=== PATIENT | female | born 1980 | race Caucasian/White ===

== ENCOUNTER 2016-11-08 06:12 | Inpatient (IN) | payer OTHER ==
[2016-11-08] MEDS ORDERED: LIDOCAINE 1% 2 ML INJ ONE (06:49)
[2016-11-08] MEDS ORDERED: PREGABALIN 150 MG CAP PO ONE (07:00)
[2016-11-08] MEDS ORDERED: ceFAZolin 2 GM/DEXTROSE 100 ML IV ONE (07:00)
[2016-11-08] MEDS ORDERED: ACETAMINOPHEN 500 MG TAB PO ONE (07:00)
[2016-11-08] MEDS ORDERED: SKIN ADHESIVE (DERMABOND) 1 EACH TP ONE (07:01)
[2016-11-08] MEDS ORDERED: CITRATE DEXTROSE SOLN 500 ML BAG ONE (07:01)
[2016-11-08] MEDS ORDERED: BUPIVACAINE/EPI 0.25% 30 ML SDV ONE ×2 (07:02→07:52)
[2016-11-08] MEDS ORDERED: MIDAZOLAM 2 MG/2 ML VIAL ONE (07:05)
[2016-11-08] MEDS ORDERED: fentaNYL 100 MCG/2 ML INJ ONE ×2 (07:06→12:50)
[2016-11-08] MEDS ORDERED: SCOPOLAMINE HYDROBROMIDE 1.5 MG PATCH TD ONE (07:18)
[2016-11-08] MEDS ORDERED: ONDANSETRON 4 MG/2 ML VIAL ONE (07:28)
[2016-11-08] MEDS ORDERED: LIDOCAINE 2% 100 MG/5 ML SYR ONE (07:28)
[2016-11-08] MEDS ORDERED: DEXAMETHASONE 4 MG/ML VIAL ONE ×2 (07:28)
[2016-11-08] MEDS ORDERED: LIDOCAINE 2% JELLY 5 ML TUBE ONE (07:28)
[2016-11-08] MEDS ORDERED: PROPOFOL/EMULSION 500 MG/50 ML BOTTLE IV ONE ×2 (07:28→08:47)
[2016-11-08] MEDS ORDERED: HYDROmorphONE/DILAUDID 2 MG/ML INJ ONE (07:55)
[2016-11-08] MEDS ORDERED: TRANEXAMIC ACID 1,000 MG in NS 100 ML IV ONE (08:00)
[2016-11-08] MEDS ORDERED: CHLORHEXIDINE GLUC HIBICLENS 118 ML BTL TP ONE (08:00)
[2016-11-08] MEDS ORDERED: ONDANSETRON 4 MG/2 ML VIAL IVP PRN ×2 (10:03→12:30)
[2016-11-08] MEDS ORDERED: HYDROmorph 10MCG/ML&BUP 0.0625% in 100ML NS EP SCH (10:03)
[2016-11-08] MEDS ORDERED: NALOXONE HCL 0.4 MG/ML INJ IVP PRN (10:03)
[2016-11-08] MEDS ORDERED: METOCLOPRAMIDE 10 MG/2 ML VIAL IVP PRN (10:03)
[2016-11-08] MEDS ORDERED: diphenhydrAMINE 25 MG CAP PO PRN (10:03)
[2016-11-08] MEDS ORDERED: NARCOTIC DRIP BAG-TOTAL ALL TYPES EP PRN (10:03)
[2016-11-08] MEDS ORDERED: PROPOFOL 200 MG/20 ML VIAL ONE ×2 (10:53→11:48)
[2016-11-08] MEDS ORDERED: LACTULOSE 20 GM/30 ML UDCUP PO PRN (12:30)
[2016-11-08] MEDS ORDERED: POLYETHYLENE GLYCOL 3350 17 GM PKT PO PRN (12:30)
[2016-11-08] MEDS ORDERED: MAGNESIUM HYDROXIDE 30 ML UDCUP PO PRN (12:30)
[2016-11-08] MEDS ORDERED: ONDANSETRON DISINTEGRATING 4 MG TAB PO PRN (12:30)
[2016-11-08] MEDS ORDERED: BISACODYL 10 MG SUPP PR PRN (12:30)
[2016-11-08] MEDS: SENNOSIDES/DOCUSATE SODIUM TAB PO SCH (21:26)
--- NOTE | 2016-11-08 23:35 | SUROPNOTE ---
MARVIN Operative Report - Surgery Surgery was performed at [facility] on 11/08/16 Diagnosis: Left 1. Hip Acetabular Dysplasia Operation: Left Mily Acetabular Osteotomy (CHUCKY) Surgeon: Ortega Chang MD Sawmill Hand: Clayton GUSMAN Anesthetic: General + epidural Procedure: General anesthetic. Antibiotics given. Cell saver in use. Fluoroscopy. Phase 1: Position lateral, diagonal skin incision between ischial tuberosity and greater trochanter as for posterior hip approach. Blunt split of glut max fibers. Identification of fat pad overlying sciatic nerve. Exposure of sciatic nerve under fat pad, gently retracting it away-medially to ischial tuberosity. Exposure of subcotoloid fossa proximal to short rotators. Using osteotomes and under fluoroscopy, osteotomy of subcotoloid fossa to sciatic notch proximal to ischial spine. Closure of lateral cut. Patient is turned supine. Phase 2: Skin incision just distal to ASIS. Using diathermy the iliac spine was exposed and inguinal ligament + Sartorious were retracted medially, taking the LFCN with them, protecting it. Inner ilium was dissected from iliacus muscle bluntly , with a cob and swab. Dissection continued towards lateral superior ramus pubis. Using fluoroscopy an osteotomy of lateral superior ramus, just medial to tear drop, was performed with curved fish mouth osteotome. Phase 3: Osteotomy lines of the ilium were marked with diathermy as pre planned according to XR/CT and expected correction of acatabulum. 2 Shanz screws were drilled into central acetabular fragment, corresponding with planned correction angles, in order to mobilize central acetabular fragment after osteotomy is complete. Iliac osteotomy was performed with reciprocating saw and the main acetabular fragment was moved to realign weight bearing position. After confirmation of correction using fluoroscopy in AP and false profile planes, the fragment was fixed with 3 - 5.5mm full threaded screws Inguinal ligament and Sartorious were attached back to ASIS through drill holes. Incision was closed according to soft tissue layers. Skin was closed with subdermal Monocryl. Final fluoro shots were obtained to confirm position/correction. After surgery Sylvia moved both lower limbs and had no NV motor compromise. Evaluation under anesthesia: IR at 90 degrees hip flexion prior to CHUCKY was 30 degrees and after CHUCKY was 20 degrees. Bleedinml loss to cell saver, 165ml back. Post op instructions: 1. Non weight bearing crutches for 6 weeks 2. Epidural analgesia for 24-48 hours 3. Continuous SCD 4. Aspirin 81 mg X1 day once Epidural is discontinued 5. Avoid hip flexion past 90 and hip External rotation. 6. PT according to my recommendations at follow up visit Kind regards, Dr. Ortega Chang .
[2016-11-09] MEDS: ACETAMINOPHEN 325 MG TAB PO PRN ×4 (02:46→23:26)
[2016-11-09] MEDS: DIAZEPAM 2 MG TAB PO PRN ×2 (07:15→15:42)
[2016-11-09] MEDS ORDERED: fentaNYL 100 MCG/2 ML INJ ONE (08:36)
[2016-11-09] MEDS ORDERED: BUPIVACAINE 0.25% 30 ML SDV ONE (08:37)
[2016-11-09 08:47] LABS: HEMATOCRIT 30.8 % (38.0-47.0); HEMOGLOBIN 10.5 g/dL (12.6-16.3); MEAN CELL HEMOGLOBIN 30.7 pg (27.9-34.1); MEAN CELL HEMOGLOBIN CONCENTR. 34.1 g/dL (32.4-36.7); MEAN CELL VOLUME 90.1 fL (81.5-99.8); RED BLOOD CELL COUNT 3.42 10^6/uL (4.18-5.33); RED CELL DISTRIBUTION WIDTH 12.4 % (11.5-15.2)
[2016-11-09] MEDS ORDERED: SERTRALINE HCL 25 MG TAB PO SCH (09:00)
[2016-11-09 09:10] LABS: ANION GAP 4 mEq/L (8-16); CALCIUM 8.3 mg/dL (8.5-10.4); CARBON DIOXIDE 28 mEq/l (22-31); CHLORIDE 105 mEq/L (97-110); CREATININE 0.6 mg/dL (0.6-1.0); GLOMERULAR FILTRATION RATE > 60; GLUCOSE 76 mg/dL (70-100); POTASSIUM 3.9 mEq/L (3.5-5.2); SODIUM 137 mEq/L (134-144)
[2016-11-09] MEDS: DC NARCS MISC SCH (09:39)
[2016-11-09] MEDS: REGARDING ANTICOAG MISC SCH (09:39)
[2016-11-09] MEDS: NORETHINDRONE E ESTRADIOL IRON PO SCH (10:15)
[2016-11-09] MEDS: SENNOSIDES/DOCUSATE SODIUM TAB PO SCH ×2 (10:16→20:40)
[2016-11-09] MEDS ORDERED: HYDROmorph 10MCG/ML&BUP 0.05% in 100ML NS EP SCH (12:57)
--- NOTE | 2016-11-09 15:11 | SOAPPROG ---
SOAP Progress Note Assessment/Plan: Assessment: POD #1 s/p CHUCKY. Had catheter accidently disconnect overnight. Pain much better after a BO bolus by Dr. Kirk. Plan: 11/09/16 15:09 1) pt with some quad weakness. Will decrease the Marcaine to 0.05%, change lockout to 10 minutes. 2) trial without BO tomorrow. Subjective: Pain now 1-2/10. Was 10,000/10 earlier. Otherwise feeling good. Objective: Vital Signs Temp Pulse Resp BP Pulse Ox 36.9 C 75 14 95/51 L 100 11/09/16 13:45 11/09/16 13:45 11/09/16 13:45 11/09/16 13:45 11/09/16 13:45 Laboratory Results 11/09/16 08:25 11/09/16 08:25 11/08/16 11/09/16 11/10/16 05:59 05:59 05:59 Intake Total 5527.3 Output Total 2950 1700 Balance 2577.3 -1700 Resting comfortably strength good through out the lower extemities, except R quad and hip flexors 4/ 5 ICD10 Worksheet Patient Problems: Problems Problem Status Onset Hip dysplasia, congenital Acute - ICD10 Problem Qualifiers (1) Hip dysplasia, congenital
--- NOTE | 2016-11-09 19:19 | SOAPPROG ---
SOAP Progress Note Assessment/Plan: Assessment: 1 day post op Left CHUCKY Plan: Wean down PCEA per anesthesia Transition to oral analgesics tomorrow Up with PT/OT Pelvis Xray Active Care continuous Post op instructions: 1. Non weight bearing crutches for 6 weeks 2. Epidural analgesia for 24-48 hours 3. Continuous SCD 4. Aspirin 81 mg X1 day once Epidural is discontinued 5. Avoid hip flexion past 90 and hip External rotation. 11/09/16 19:15 11/09/16 19:20 11/09/16 19:27 Subjective: Sylvia had a rough morning with disconnected epidural, much better this evening. Pain well controlled with PCEA. Denies cp, sob, nausea. Objective: Vital Signs Temp Pulse Resp BP Pulse Ox 37.4 C 88 14 108/56 L 95 11/09/16 17:35 11/09/16 17:35 11/09/16 17:35 11/09/16 17:35 11/09/16 17:35 Laboratory Results 11/09/16 08:25 11/09/16 08:25 11/08/16 11/09/16 11/10/16 05:59 05:59 05:59 Intake Total 5527.3 1999 Output Total 2950 4050 Balance 2577.3 -2050 Well appearing in NAD Left hip: with scant ecchymosis, dressings dry Some LFCN numbness NVI distally Full ROM of left foot and ankle - Pending Discharge Pending Discharge Within 48 Hours: Yes Pending Discharge Date: 11/11/16 Pending Discharge Time: 11:00 ICD10 Worksheet Patient Problems: Problems Problem Status Onset Hip dysplasia, congenital Acute
[2016-11-10] MEDS: oxyCODONE IR 5 MG TAB PO PRN ×5 (05:58→20:58)
[2016-11-10] MEDS: SENNOSIDES/DOCUSATE SODIUM TAB PO SCH ×2 (08:18→21:33)
[2016-11-10] MEDS: DIAZEPAM 2 MG TAB PO PRN ×3 (08:19→20:59)
[2016-11-10] MEDS: SERTRALINE HCL 50 MG TAB PO SCH (08:20)
[2016-11-10] MEDS: NORETHINDRONE E ESTRADIOL IRON PO SCH (08:20)
[2016-11-10] MEDS: REGARDING ANTICOAG MISC SCH (10:02)
[2016-11-10] MEDS: DC NARCS MISC SCH (10:02)
[2016-11-10] MEDS: ASPIRIN EC 81 MG TAB PO SCH (13:09)
[2016-11-10] MEDS ORDERED: SCOPOLAMINE HYDROBROMIDE 1.5 MG PATCH TD PRN (13:19)
[2016-11-10] MEDS: HYDROmorphONE/DILAUDID 1 MG/ML SYR IVP PRN ×2 (18:06→21:01)
--- NOTE | 2016-11-10 18:16 | SOAPPROG ---
SOAP Progress Note Assessment/Plan: Assessment: POD #1 s/p CHUCKY. Had catheter accidently disconnect overnight. Pain much better after a BO bolus by Dr. Kirk. 11/10/16 POD #2 s/p CHUCKY. Did okay today with BO off. Strength good. Plan: 11/09/16 15:09 1) pt with some quad weakness. Will decrease the Marcaine to 0.05%, change lockout to 10 minutes. 2) trial without BO tomorrow. 11/10/16 18:14 pull BO and transition to po/IV meds. cath out, tip intact. Objective: Vital Signs Temp Pulse Resp BP Pulse Ox 37.9 C 92 16 119/66 94 11/10/16 15:55 11/10/16 15:55 11/10/16 15:55 11/10/16 15:55 11/10/16 15:55 Laboratory Results 11/09/16 08:25 11/09/16 08:25 11/09/16 11/10/16 11/11/16 05:59 05:59 05:59 Intake Total 5527.3 3500 2100 Output Total 2950 5700 4900 Balance 2577.3 -2200 -2800 ICD10 Worksheet Patient Problems: Problems Problem Status Onset Hip dysplasia, congenital Acute - ICD10 Problem Qualifiers (1) Hip dysplasia, congenital
[2016-11-11] MEDS: oxyCODONE IR 5 MG TAB PO PRN ×7 (03:39→20:10)
[2016-11-11] MEDS: HYDROmorphONE/DILAUDID 1 MG/ML SYR IVP PRN ×2 (03:40→08:55)
[2016-11-11] MEDS: DIAZEPAM 2 MG TAB PO PRN (04:17)
[2016-11-11] MEDS: NORETHINDRONE E ESTRADIOL IRON PO SCH (09:00)
[2016-11-11] MEDS: ASPIRIN EC 81 MG TAB PO SCH (09:00)
[2016-11-11] MEDS: SERTRALINE HCL 50 MG TAB PO SCH (09:00)
[2016-11-11] MEDS: DC NARCS MISC SCH (09:34)
[2016-11-11] MEDS: SENNOSIDES/DOCUSATE SODIUM TAB PO SCH ×2 (09:35→20:10)
[2016-11-11] MEDS: DIAZEPAM 5 MG TAB PO PRN ×2 (10:49→17:12)
[2016-11-11] MEDS: morphINE SR 15 MG TAB PO SCH ×2 (10:49→20:11)
--- NOTE | 2016-11-11 14:07 | SOAPPROG ---
GUILLERMO Progress Note Assessment/Plan: Assessment: 3 day post op Left CHUCKY Plan: Change in meds: MS Contin 15mg Q12hr Valium 5mg Up with PT/OT Pelvis Xray today looks good today Active Care continuous Home in 1-2 days Post op instructions: 1. Non weight bearing crutches for 6 weeks 2. Epidural analgesia for 24-48 hours 3. Continuous SCD 4. Aspirin 81 mg X1 day once Epidural is discontinued 5. Avoid hip flexion past 90 and hip External rotation. 11/09/16 19:15 11/09/16 19:20 11/09/16 19:27 11/11/16 14:04 11/11/16 14:08 11/11/16 14:09 Subjective: Sylvia had some difficulity with transition from epidural to oral analgesics but is better pain relieved with increase in Dilaudid IVP. The Valium has been helping with muscle spasms but feels she needs a higher dose. She denies any cp , no nausea or sob. Xray today. Objective: Vital Signs Temp Pulse Resp BP Pulse Ox 36.8 C 103 H 18 122/79 H 98 11/11/16 11:31 11/11/16 11:31 11/11/16 11:31 11/11/16 11:31 11/11/16 11:31 Laboratory Results 11/09/16 08:25 11/09/16 08:25 11/10/16 11/11/16 11/12/16 05:59 05:59 05:59 Intake Total 3500 2700 Output Total 5700 6800 1500 Balance -2200 -4100 -1500 Well appearing in NAD Left hip: dressings dry scant ecchymosis no LFCN numbness NVI distally full ROM of foot and ankle - Pending Discharge Pending Discharge Within 24 Hours: Yes Pending Discharge Date: 11/12/16 Pending Discharge Time: 11:00 ICD10 Worksheet Patient Problems: Problems Problem Status Onset Hip dysplasia, congenital Acute
--- NOTE | 2016-11-11 14:37 | SOAPPROG ---
SOAP Progress Note Assessment/Plan: Assessment: Plan: 11/11/16 14:34 I saw Sylvia last night (9pm, 11/10), POD2. She was doing ok without the epidural (taken out 6pm). Pain was 4-5/10. We adjusted her pain medication that night. NV intact including LFCN (minimal tingling). XR today looked good, with no Change in alignment. Will monitor her progress Dr Chang Objective: Vital Signs Temp Pulse Resp BP Pulse Ox 36.8 C 103 H 18 122/79 H 98 11/11/16 11:31 11/11/16 11:31 11/11/16 11:31 11/11/16 11:31 11/11/16 11:31 Laboratory Results 11/09/16 08:25 11/09/16 08:25 11/10/16 11/11/16 11/12/16 05:59 05:59 05:59 Intake Total 3500 2700 Output Total 5700 6800 1500 Balance -2200 -4100 -1500 ICD10 Worksheet Patient Problems: Problems Problem Status Onset Hip dysplasia, congenital Acute
[2016-11-12] MEDS: oxyCODONE IR 5 MG TAB PO PRN ×7 (00:15→20:24)
[2016-11-12] MEDS: DIAZEPAM 5 MG TAB PO PRN ×4 (00:16→20:33)
[2016-11-12] MEDS: ASPIRIN EC 81 MG TAB PO SCH (08:50)
[2016-11-12] MEDS: NORETHINDRONE E ESTRADIOL IRON PO SCH (08:50)
[2016-11-12] MEDS: morphINE SR 15 MG TAB PO SCH ×2 (08:50→20:24)
[2016-11-12] MEDS: SERTRALINE HCL 50 MG TAB PO SCH (08:50)
[2016-11-12] MEDS: SENNOSIDES/DOCUSATE SODIUM TAB PO SCH ×2 (08:53→20:24)
[2016-11-12] MEDS: DC NARCS MISC SCH (09:05)
[2016-11-12 11:02] VITALS: RESP 16
[2016-11-12] MEDS: NAPROXEN SODIUM 220 MG TAB PO SCH ×2 (13:19→20:24)
[2016-11-12] MEDS ORDERED: NS 500 ML IV ONE (23:30)
[2016-11-13] MEDS: oxyCODONE IR 5 MG TAB PO PRN ×4 (04:20→16:58)
[2016-11-13] MEDS: DIAZEPAM 5 MG TAB PO PRN ×2 (04:20→23:21)
[2016-11-13] MEDS: morphINE SR 15 MG TAB PO SCH ×2 (09:35→20:52)
[2016-11-13] MEDS: SERTRALINE HCL 50 MG TAB PO SCH (09:36)
[2016-11-13] MEDS: ASPIRIN EC 81 MG TAB PO SCH (09:36)
[2016-11-13] MEDS: NAPROXEN SODIUM 220 MG TAB PO SCH ×2 (09:39→20:53)
[2016-11-13] MEDS: SENNOSIDES/DOCUSATE SODIUM TAB PO SCH ×2 (09:39→20:54)
[2016-11-13] MEDS: NORETHINDRONE E ESTRADIOL IRON PO SCH (09:42)
[2016-11-13] MEDS: DC NARCS MISC SCH (10:30)
--- NOTE | 2016-11-13 10:41 | SOAPPROG ---
SOAP Progress Note Assessment/Plan: Assessment: Plan: 11/11/16 14:34 I saw Sylvia last night (9pm, 11/10), POD2. She was doing ok without the epidural (taken out 6pm). Pain was 4-5/10. We adjusted her pain medication that night. NV intact including LFCN (minimal tingling). XR today looked good, with no Change in alignment. Will monitor her progress Dr Chang 11/13/16 10:40 Saw Sylvia last night (11/12 9pm) POD4. She is doing well and just need to feel more confident with mobility, and transitions so she can be discharged. NV intact, signs are good, dressing dry. Good for discharge. Dr Chang Objective: Vital Signs Temp Pulse Resp BP Pulse Ox 36.6 C 112 H 16 102/66 99 11/13/16 08:00 11/13/16 08:00 11/13/16 08:00 11/13/16 08:00 11/13/16 08:00 Laboratory Results 11/09/16 08:25 11/09/16 08:25 11/12/16 11/13/16 11/14/16 05:59 05:59 05:59 Intake Total 500 700 Output Total 4800 Balance -4300 700 ICD10 Worksheet Patient Problems: Problems Problem Status Onset Hip dysplasia, congenital Acute
[2016-11-13] MEDS ORDERED: D5W 1/2 NS W/ 20 KCl/L 1,000 ML IV SCH (19:00)
[2016-11-14] MEDS: oxyCODONE IR 5 MG TAB PO PRN ×4 (00:18→14:11)
[2016-11-14] MEDS: ACETAMINOPHEN 325 MG TAB PO PRN (08:14)
[2016-11-14] MEDS: DIAZEPAM 5 MG TAB PO PRN (08:14)
[2016-11-14 08:18] VITALS: BP 103/61; PULSE 88; TEMP 97.9; O2SAT 99
[2016-11-14] MEDS: NAPROXEN SODIUM 220 MG TAB PO SCH (10:05)
[2016-11-14] MEDS: SENNOSIDES/DOCUSATE SODIUM TAB PO SCH (10:06)
[2016-11-14] MEDS: SERTRALINE HCL 50 MG TAB PO SCH (10:06)
[2016-11-14] MEDS: ASPIRIN EC 81 MG TAB PO SCH (10:06)
[2016-11-14] MEDS: morphINE SR 15 MG TAB PO SCH (10:19)
[2016-11-14] MEDS: NORETHINDRONE E ESTRADIOL IRON PO SCH (14:04)
[2016-11-14] MEDS: DC NARCS MISC SCH (14:05)
== END 2016-11-14 14:33 | disposition home or self-care (01) | DRG 517 ==
LOC: F3N 06:12
PROVIDERS: ADMIT Orthopaedic Surgery Sports Medicine; ATTEND Orthopaedic Surgery Sports Medicine
PROC: 0QS Lower Bones, Reposition (ICD-10-PCS; principal; 2016-11-08 07:15)
DX: Q65.89 Other specified congenital deformities of hip (principal)
CPT/HCPCS: 97116-GP; 97162-GP; 97165-GO; 97530-GP; 97535-GO; C1713; C1769; J0690; J1100; J1170; J2001; J2250; J2405; J2704; J3010; J7060

== ENCOUNTER 2018-09-04 09:40 | Observation (INO) | payer OTHER ==
--- NOTE | 2018-09-03 21:09 | PDGENHP ---
History and Physical - Chief Complaint RIGHT HIP PAIN - History of Present Illness 1. Bilateral~Femoroacetabular impingement (JAH) Cam type, labral tears 2. Bilateral~Hip Dyplasia HISTORY OF PRESENT ILLNESS: Jose Cis a 38 y.o.~active female~who I have had the pleasure to consult on today. 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 ~Jose Cenjoys skiing, playing soccer. Izabelas~bilateral~hip pain R~started 1998, with~no~recalled trauma or injury, and with no~previous complaints. Jose Cdoes not have~a known history of hip dysplasia. Presentation today is of hip pain Right side is lateral. ~The hip~does not~wake her~at night and the left side will~click and catch on~her. Sitting~does not present a problem~for her.~Jose Cdoes not~report suffering from lower back pain episodes. Jose Chas~participated in physical therapy from November to present~and has~ tried other conservative measures including chiropractic treatments.~Luz~has not ~received sufficient symptomatic improvement. Jose Chas~utilized medication for pain management, including NSAID.~Jose C has used medication intermittently. Jose Cdoes have right hip pain.~ Jose Cunderstands that she~has a hip and pelvis problem which should be researched and wishes to get a better understanding of her~hip status, followed by an establishment of a treatment strategy, hoping sheMaria Elenawould be able to get back to her~well being active life. History: Past medical history:~~ None which is relevant~ Relevant familial history:~Mom has DDD (cervical, thoracic and lumbar) Past surgical history:~ No. Surgery Anesthesia Year Outcome 1 C section X2 2 Bilateral knee arthroscopy general 3 Umbilical hernia general Jose Cdenies problematic issues with general anesthesia in the past. I have reviewed, verified and agree with the past medical, surgical, family and social history. Current Medications:~has a current medication list which includes the following prescription(s): GENERIC DME, levonorgestrel-ethinyl estradiol-ethinyl estrad, loratadine, pseudoephedrine hcl, and sertraline. ALLERGIES:~is allergic to no known drug allergies. Objective: Physical Examination: Jose Cis 5~feet 3~inches tall and weighs 170~Lbs. Jose Cis AAO x3; she~is well-nourished, in NAD. Skin is warm and dry. ~Breathing is non-labored. ~CV with RRR by pulse. Abdomen is soft, NTND. Currently,~she~walks with a normal~gait. Trendelenburg sign is~negative~and proprioception is normal,~both~sides. She~presents with moderate~signs of joint laxity. Beightons Score:~4 Lower spine examination is~negative~for sciatic or femoral nerve irritation with negative~SLR &~femoral stretch tests. Range of motion of the spine is normal~for flexion, extension, and rotations, with no~associated pain. Strength, Sensation and pulses are~normal -~bilaterally Ankles and knees exams are~normal~and no~mal-alignment is evident. She~has~left~1~cm short leg length discrepancy. Thigh circumference is~symmetric~with no evidence for muscle atrophy~on both~ sides. Hip ROM (degrees): FL ER At 90~hip FL IR At 90~hip FL AB AD EX IR Neutral hip ER Neutral hip R 110 45 30 40 5 5 55 30 L 115 45 40 40 5 10 55 30 Specific hip and pelvis tests: Quadrant YAYO Roll Add. Longus R +++ +++ Negative Negative L +++ +++ Negative +++ Glut. Med ITB Pos. Imp R Negative 5/5 strength Negative 5/5 strength Negative L Negative 5/5 strength Negative 5/5 strength Negative Squeeze test~was slightly weak Bony Symphysis pubis is~painful~to touch~while concentric activity of the rectus abdominis, does not~produce pain at its insertion. Ilio Psos specific tests are~negative for pain during cycling for~both hips~and no snap HF has~slight weakness~both hips. Posterior~capsule tenderness bilaterally Greater trochanteric burse is~painful left side. Piriformis tests: FAIR is~negative,~with no~local signs of neuritis related to sciatic nerve. SIJs examination is~produces pain on~right side~with normal~YAYO in relation and local tenderness. Hamstrings~tests are negative~functional contraction and positive~tendinopathy the left hip. On a daily basis, the following percentages reflect~Sylvia's~Left side~overall total pain: Deep hip:~80% Hamstrings:~20% On a daily basis, the following percentages reflect~Sylvia's~Right side~ overall total pain: Deep hip:~100% Imaging: Radiology studies which I have personally reviewed, analyzed and measured are below: XR: AP of the hip and pelvis: Performed in a~good~technique Coccyx to pubic symphysis distance~<0.5~cm. 0 degrees [place] Lines are~preserved. Minimal~Pathological signs are seen in the Symphysis Pubis. Minimal~Pathological signs are seen at the Ischial tuberosity. ~ Specific measurements show: NSA~ LCE Sourcil~Angle Sharp's angle Lat. Cam Lat. Pincer C.Over~sign Head~Coverage % ATDmm R N 20 8 43 - - - 65 N L N 25 5 41 - - - 67 N Pos. wall sign ISS NAD ~~Dysplasia Comments R Negative Negative 19.1~mm ++ L Negative Negative 20.1~mm ++ Sclerosis Sup. Lat. OA Cysts Joint Space-WBZ Joint Space-Medial R Negative Negative Negative 4~mm 4.1~mm L Negative Negative Negative 4.2~mm 3.8~mm X Table lateral: Anterior cam lesion is~seen~on both hips. Alpha Angle: ~ Right~71~dergrees Left~73~degrees MRI, LEFT HIP- Anterior sub chondral cyst, labral tear (normal size) Impression and plan:Maria Elena Woodallis a 38 y.o.~active female~suffering from symptomatic bilateral~hip pain due to Bilateral~Femoroacetabular impingement (JAH) Cam type,~Bilateral~ Hip Dyplasia~causing significant disability to her~and altering her~sport and life activities. Physical examination, imaging, and~her~story correspond with the diagnosis mentioned above. I explained that hip dysplasia is a condition wherein the hip joint has excessive play~and instability due to a variety of factors, including the depth and adequacy of the socket, the orientation of the femur bone, and ligament laxity around the hip joint. Dysplasia ranges in severity from borderline to michaela, with treatment options being specific to the specific nature of the problem. Left untreated, the instability in the hip joint can cause progressive tearing of the labrum and deterioration of the surface cartilage, ultimately resulting in progressive osteoarthritis of the hip. I explained that femoroacetabular impingement (JAH - Cam type) arises due to a bony or soft tissue conflict between the femur (ball) and acetabulum (socket) caused by an abnormality in the shape of the femoral head and neck. Over time, repetitive impingement can result in damage to the labrum and adjacent surface cartilage within the socket, ultimately giving rise to progressive osteoarthritis of the hip. I explained that although a labral tear can be a source of pain, it is rarely the root of the problem and typically occurs secondary to an underlying abnormality in the shape and mechanics of the hip joint. I reviewed conservative treatment options for Dysplasia and JAH including activity modification to avoid positions of impingement or instability, physical therapy, non-steroidal anti-inflammatory medications, and various injections (corticosteroid and PRP) aimed at reducing inflammation in the hip joint or/and preventing dynamic instability and impingement. PRP injections may promote healing and reduce symptoms in certain cases but it will not repair chronically damaged tissue. Although these measures may help to buy time~and reduce current level of symptoms, they are not a definitive solution to the problem given the underlying abnormality in the shape of the hip joint. Patients who have failed conservative management and continue to experience symptoms are candidates for definitive surgical treatment, which may consist of hip arthroscopy alone or in combination with more invasive bony realignment procedures of the hip socket and/or femur called periacetabular osteotomy (CHUCKY) or derotational femoral osteotomy (DFO). Hip arthroscopy typically includes treating the labrum with either repair or reconstruction of the torn labrum; as well as addressing the underlying abnormalities by restoring the normal shape to the hip joint. If the cartilage is damaged a Microfracture surgical procedure may also be necessary to help stimulate the growth of fibrocartilage. If a patient requires a labral reconstruction or a Microfracture, the initial rehabilitation from the surgery may take longer, but the long-term results are typically favorable. I reviewed the technical aspects of periacetabular osteotomy (CHUCKY) including risks, benefits, and expected course of recovery.~Sylvia~understands that CHUCKY is an inpatient procedure carried out through two medium sized incisions on the front and back of the hip joint. The hip socket is cut, realigned, and stabilized with 2 3 internal screws. Risks include infection, bleeding, injury to nearby nerves or vessels, stiffness, persistent pain, instability, failure of bony healing, implant related complications, and venous thromboembolic disease. Rarely, revision surgery may be required to address these problems. Risks, potential complications, side effects and recovery from surgical procedure were discussed in length. We explained how this surgery is an open procedure, and though patients tend to do well in the long-term, it involves significant pain in the first 2-4 weeks post-op and a rather lengthy rehab.~Overall recovery takes approximately 6 12~months depending on the extent of damage and degree of repair. Jose Cunderstands that she~will undergo hip arthroscopy 1 week prior to the CHUCKY to address damage inside the hip joint. Jose Cunderstands that hip arthroscopy and CHUCKY are two separate procedures that are best performed one week apart, with the arthroscopy commencing first to "tighten up" any pathology evident in the hip joint (labral repair, etc.) and the CHUCKY open procedure occurring 7-10 days later to realign the acetabulum. Jose Cwill review the info presented. In order to obtain more detailed information regarding the alignment, orientation, and shape of the bony hip and pelvis I will order a CT scan to be performed. The results of the CT scan, including femoral torsion and acetabular version measured values and 3D images, will aid me in deciding on the best treatment strategy and surgical pre-planning. In order to evaluate the integrity of the surface cartilage within the hip joint , I will order a delayed gadolinium enhanced MRI of cartilage (dGEMRIC). This study will determine whetherJudeis a good candidate for hip preservation surgery. Jose Cis going to think about her~options and get back to us. Jose Cis happy with this plan. I have also supplied~her~with handouts, outlining the expected surgical treatment and rehab involved. I wish~Jose Call the best, ~~ Antonio Sanchez PAC History Information - Allergies/Home Medication List Allergies/Adverse Reactions: adhesive tape Allergy (Verified 10/07/16 14:06) Rash morphine Allergy (Verified 10/07/16 14:06) Vomiting Home Medications: Herbals/Supplements -Info Only DAILY 08/11/18 [Last Taken Unknown] Ibuprofen PRN 08/11/18 [Last Taken Unknown] MIRENA IU 08/11/18 [Last Taken Unknown] I have personally reviewed and updated: medical history - Social History Smoking Status: Never smoked Review of Systems Review of Systems: Physical Exam Physical Exam:
[2018-09-04] MEDS ORDERED: ACETAMINOPHEN 500 MG TAB PO ONE (10:53)
[2018-09-04] MEDS ORDERED: ceFAZolin 2 GM/DEXTROSE 100 ML IV ONE (10:53)
[2018-09-04] MEDS ORDERED: PREGABALIN 150 MG CAP PO ONE (10:53)
[2018-09-04] MEDS ORDERED: LIDOCAINE 1% 2 ML INJ ID PRN (10:55)
[2018-09-04] MEDS ORDERED: LR 1,000 ML IV ONE (10:55)
[2018-09-04] MEDS ORDERED: BUPIVACAINE/EPI 0.25% 30 ML SDV ONE (15:38)
[2018-09-04] MEDS ORDERED: EPINEPHrine 30 MG/30 ML MDV (0.1 MG/0.1 ML) ONE ×2 (15:38→15:44)
[2018-09-04] MEDS ORDERED: LIDO/EPI 1% **Not for Epidural 20 ML MDV ONE (15:38)
--- NOTE | 2018-09-04 15:38 | PDANEPAE ---
ANE Past Medical History - Cardiovascular History Hx Hypertension: No Hx Arrhythmias: No Hx Chest Pain: No Hx Coronary Artery / Peripheral Vascular Disease: No Hx CHF / Valvular Disease: No Hx Palpitations: No - Pulmonary History Hx COPD: No Hx Asthma/Reactive Airway Disease: No Hx Recent Upper Respiratory Infection: No Hx Oxygen in Use at Home: No Hx Sleep Apnea: No Sleep Apnea Screening Result - Last Documented: Negative - Neurologic History Hx Cerebrovascular Accident: No Hx Seizures: No Hx Dementia: No - Endocrine History Hx Diabetes: No - Renal History Hx Renal Disorders: No - Liver History Hx Hepatic Disorders: No - Neurological & Psychiatric Hx Hx Neurological and Psychiatric Disorders: Yes Neurological / Psychiatric History Comment: DEPRESSION - Cancer History Hx Cancer: No - Congenital Disorder History Hx Congenital Disorders: No - GI History Hx Gastrointestinal Disorders: No - Other Health History Other Health History: NEG - Chronic Pain History Chronic Pain: Yes (RT HIP) - Surgical History Prior Surgeries: LT HIP JOSE ACETABULAR OSTEOTOMY 10/2016. X 2. LT KNEE RECONSTRUCTION. HERNIA REPAIR. ABDOMINOPLASTY. R KNEE ANE Review of Systems Review of Systems: - Exercise capacity METS (RN): 5 METS ANE Patient History - Allergies Allergies/Adverse Reactions: adhesive tape Allergy (Verified 10/07/16 14:06) Rash morphine Allergy (Verified 10/07/16 14:06) Vomiting - Home Medications Home Medications: Herbals/Supplements -Info Only DAILY 08/11/18 [Last Taken 08/28/18] Ibuprofen PRN 08/11/18 [Last Taken 08/28/18] MIRENA IU 08/11/18 [Last Taken 09/04/18] - NPO status NPO Since - Liquids (Date): 09/04/18 NPO Since - Liquids (Time): 08:00 NPO Since - Solids (Date): 09/03/18 NPO Since - Solids (Time): 22:00 - Smoking Hx Smoking Status: Never smoked - Family Anes Hx Family Hx Anesthesia Complications: NEG ANE Labs/Vital Signs - Vital Signs Blood Pressure: 108/64 Heart Rate: 70 Respiratory Rate: 20 O2 Sat (%): 98 Height: 161.93 cm Weight: 77.111 kg ANE Physical Exam - Airway Mallampati Score: Class 2 - ASA Status ASA Status: I
[2018-09-04] MEDS ORDERED: MIDAZOLAM 2 MG/2 ML VIAL ONE (15:43)
[2018-09-04] MEDS ORDERED: ONDANSETRON 4 MG/2 ML VIAL ONE ×4 (15:44→21:17)
[2018-09-04] MEDS ORDERED: PROPOFOL 200 MG/20 ML VIAL ONE (15:44)
[2018-09-04] MEDS ORDERED: fentaNYL 100 MCG/2 ML INJ ONE ×3 (15:44→18:50)
[2018-09-04] MEDS ORDERED: ROCURONIUM 50 MG/5 ML VIAL ONE (15:45)
[2018-09-04] MEDS ORDERED: METOCLOPRAMIDE 10 MG/2 ML VIAL ONE (15:45)
[2018-09-04] MEDS ORDERED: DEXAMETHASONE 4 MG/ML VIAL ONE (15:47)
--- NOTE | 2018-09-04 17:31 | POSTOPPROG ---
Post Op Note Date of Operation: 09/04/18 Surgeon: Ortega Chang Director Airport Operations: Dr. Valdovinos Anesthesia: GET(General Endotracheal) Pre-op Diagnosis: RIGHT JAH Post-op Diagnosis: RIGHT JAH Procedure: Right Hip Arthroscopy Inf/Abcess present in the surg proc area at time of surgery?: No
[2018-09-04] MEDS ORDERED: PROMETHAZINE HCL 25 MG/ML INJ IVP PRN ×2 (18:34→22:13)
[2018-09-04] MEDS ORDERED: LR 500 ML IV PRN (18:34)
[2018-09-04] MEDS ORDERED: ONDANSETRON 4 MG/2 ML VIAL IVP PRN ×2 (18:34→22:13)
[2018-09-04] MEDS ORDERED: HYDROCODONE/APAP 5/325 TAB PO PRN (18:34)
[2018-09-04] MEDS ORDERED: NALOXONE HCL 0.4 MG/ML INJ IVP PRN (18:34)
[2018-09-04] MEDS: fentaNYL 100 MCG/2 ML INJ IVP PRN ×4 (18:36→19:04)
--- NOTE | 2018-09-04 18:36 | POSTANESTH ---
Post Anesthetic Evaluation Cardiovascular Status: Normal, Stable Respiratory Status: Normal, Stable Level of Consciousness/Mental Status: Can Participate in Eval Pain Control: Adequate, Prn Tx Ordered Nausea/Vomiting Control: Adequate, Prn Tx Ordered Complications Possibly Related to Anesthesia: None Noted
[2018-09-04] MEDS ORDERED: HYDROmorphONE/DILAUDID 2 MG/ML INJ ONE ×2 (19:15→20:18)
[2018-09-04] MEDS: HYDROmorphONE/DILAUDID 2 MG/ML INJ IVP PRN ×4 (19:16→20:34)
[2018-09-04] MEDS ORDERED: HYDROCODONE/APAP 5/325 TAB ONE (19:27)
[2018-09-04] MEDS ORDERED: HYDROmorphONE/DILAUDID 1 MG/ML INJ IVP PRN (22:13)
[2018-09-04] MEDS ORDERED: oxyCODONE IR 15 MG TAB PO PRN (22:20)
[2018-09-04] MEDS ORDERED: oxyCODONE IR 5 MG TAB ONE (22:38)
[2018-09-04] MEDS: oxyCODONE IR 5 MG TAB PO PRN (22:46)
[2018-09-05] MEDS: oxyCODONE IR 5 MG TAB PO PRN ×2 (04:15→09:06)
[2018-09-05 07:28] VITALS: BP 106/58
== END 2018-09-05 10:44 | disposition home or self-care (01) ==
LOC: FSGY 09:40 → F3N 22:13
PROVIDERS: ADMIT Orthopaedic Surgery Sports Medicine; ATTEND Orthopaedic Surgery Sports Medicine
PROC: 0SB90ZZ Excision of Right Hip Joint, Open Approach (ICD-10-PCS; principal; 2018-09-04 13:00)
PROC: 0SQ94ZZ Repair Right Hip Joint, Percutaneous Endoscopic Approach (ICD-10-PCS; principal; 2018-09-04 13:00)
DX: M25.851 Other specified joint disorders, right hip (principal); M24.151 Other articular cartilage disorders, right hip
CPT/HCPCS: 29914; 29916; 97116; 97161; G0378; C1713; J0171; J0690; J1100; J1170; J2250; J2405; J2704; J2765; J3010

== ENCOUNTER 2018-09-11 05:50 | Inpatient (IN) | payer OTHER ==
--- NOTE | 2018-09-10 20:37 | PDGENHP ---
History and Physical - Chief Complaint RIGHT HIP PAIN - History of Present Illness 1. Right~Hip Dyplasia 2. History of Left CHUCKY; Left Hip arthroscopy 3. History of Right Hip arthroscopy HISTORY OF PRESENT ILLNESS: Jose Cis a 38 y.o.~active female~who I have had the pleasure to consult on today. 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 ~Jose Cenjoys skiing, playing soccer. zIabelas~bilateral~hip pain started 1998, with~no~recalled trauma or injury, and with no~previous complaints. Jose Cdoes not have~a known history of hip dysplasia. Presentation today is of~Right lateral hip pain. ~The hip~does not~wake her~at night and the left side will~click and catch on~her. Sitting~does not present a problem~for her.~Jose Cdoes not~report suffering from lower back pain episodes. Jose Chas~participated in physical therapy from November to present~and has~ tried other conservative measures including chiropractic treatments.~Luz~has not ~received sufficient symptomatic improvement. Jose Chas~utilized medication for pain management, including NSAID.~Jose C has used medication intermittently. Jose Cunderstands that she~has a hip and pelvis problem which should be researched and wishes to get a better understanding of her~hip status, followed by an establishment of a treatment strategy, hoping she~would be able to get back to her~well being active life. History: Past medical history:~~ None which is relevant~ Relevant familial history:~Mom has DDD (cervical, thoracic and lumbar) Past surgical history:~ No. Surgery Anesthesia Year Outcome 1 C section X2 2 Bilateral knee arthroscopy general 3 Umbilical hernia general 4. LEFT CHUCKY 5. Left Hip Arthroscopy; Right hip arthroscopy Jose Cdenies problematic issues with general anesthesia in the past. I have reviewed, verified and agree with the past medical, surgical, family and social history. Current Medications:~has a current medication list which includes the following prescription(s): GENERIC DME, levonorgestrel-ethinyl estradiol-ethinyl estrad, loratadine, pseudoephedrine hcl, and sertraline. ALLERGIES:~is allergic to no known drug allergies. Objective: Physical Examination: Jose Cis 5~feet 3~inches tall and weighs 170~Lbs. Jose Cis AAO x3; she~is well-nourished, in NAD. Skin is warm and dry. ~Breathing is non-labored. ~CV with RRR by pulse. Abdomen is soft, NTND. Currently,~she~walks with a normal~gait. Trendelenburg sign is~negative~and proprioception is normal,~both~sides. She~presents with moderate~signs of joint laxity. Beightons Score:~4 Lower spine examination is~negative~for sciatic or femoral nerve irritation with negative~SLR &~femoral stretch tests. Range of motion of the spine is normal~for flexion, extension, and rotations, with no~associated pain. Strength, Sensation and pulses are~normal -~bilaterally Ankles and knees exams are~normal~and no~mal-alignment is evident. She~has~left~1~cm short leg length discrepancy. Thigh circumference is~symmetric~with no evidence for muscle atrophy~on both~ sides. Hip ROM (degrees): FL ER At 90~hip FL IR At 90~hip FL AB AD EX IR Neutral hip ER Neutral hip R 110 45 30 40 5 5 55 30 L 115 45 40 40 5 10 55 30 Specific hip and pelvis tests: Quadrant YAYO Roll Add. Longus R +++ +++ Negative Negative L +++ +++ Negative +++ Glut. Med ITB Pos. Imp R Negative 5/5 strength Negative 5/5 strength Negative L Negative 5/5 strength Negative 5/5 strength Negative Squeeze test~was slightly weak Bony Symphysis pubis is~painful~to touch~while concentric activity of the rectus abdominis, does not~produce pain at its insertion. Ilio Psos specific tests are~negative for pain during cycling for~both hips~and no snap HF has~slight weakness~both hips. Posterior~capsule tenderness bilaterally Greater trochanteric burse is~painful left side. Piriformis tests: FAIR is~negative,~with no~local signs of neuritis related to sciatic nerve. SIJs examination is~produces pain on~right side~with normal~YAYO in relation and local tenderness. Hamstrings~tests are negative~functional contraction and positive~tendinopathy the left hip. On a daily basis, the following percentages reflect~Sylvia's~Left side~overall total pain: Deep hip:~80% Hamstrings:~20% On a daily basis, the following percentages reflect~Sylvia's~Right side~ overall total pain: Deep hip:~100% Imaging: Radiology studies which I have personally reviewed, analyzed and measured are below: XR: AP of the hip and pelvis: Performed in a~good~technique Coccyx to pubic symphysis distance~<0.5~cm. 0 degrees [place] Lines are~preserved. Minimal~Pathological signs are seen in the Symphysis Pubis. Minimal~Pathological signs are seen at the Ischial tuberosity. ~ Specific measurements show: NSA~ LCE Sourcil~Angle Sharp's angle Lat. Cam Lat. Pincer C.Over~sign Head~Coverage % ATDmm R N 20 8 43 - - - 65 N L N 25 5 41 - - - 67 N Pos. wall sign ISS NAD ~~Dysplasia Comments R Negative Negative 19.1~mm ++ L Negative Negative 20.1~mm ++ Sclerosis Sup. Lat. OA Cysts Joint Space-WBZ Joint Space-Medial R Negative Negative Negative 4~mm 4.1~mm L Negative Negative Negative 4.2~mm 3.8~mm X Table lateral: Anterior cam lesion is~seen~on both hips. Alpha Angle: ~ Right~71~dergrees Left~73~degrees MRI, LEFT HIP- Anterior sub chondral cyst, labral tear (normal size) Impression and plan:Maria Elena Woodallis a 38 y.o.~active female~suffering from symptomatic bilateral~hip pain due to Bilateral~Femoroacetabular impingement (JAH) Cam type,~Bilateral~ Hip Dyplasia~causing significant disability to her~and altering her~sport and life activities. Physical examination, imaging, and~her~story correspond with the diagnosis mentioned above. I explained that hip dysplasia is a condition wherein the hip joint has excessive play~and instability due to a variety of factors, including the depth and adequacy of the socket, the orientation of the femur bone, and ligament laxity around the hip joint. Dysplasia ranges in severity from borderline to michaela, with treatment options being specific to the specific nature of the problem. Left untreated, the instability in the hip joint can cause progressive tearing of the labrum and deterioration of the surface cartilage, ultimately resulting in progressive osteoarthritis of the hip. I explained that femoroacetabular impingement (JAH - Cam type) arises due to a bony or soft tissue conflict between the femur (ball) and acetabulum (socket) caused by an abnormality in the shape of the femoral head and neck. Over time, repetitive impingement can result in damage to the labrum and adjacent surface cartilage within the socket, ultimately giving rise to progressive osteoarthritis of the hip. I explained that although a labral tear can be a source of pain, it is rarely the root of the problem and typically occurs secondary to an underlying abnormality in the shape and mechanics of the hip joint. I reviewed conservative treatment options for Dysplasia and JAH including activity modification to avoid positions of impingement or instability, physical therapy, non-steroidal anti-inflammatory medications, and various injections (corticosteroid and PRP) aimed at reducing inflammation in the hip joint or/and preventing dynamic instability and impingement. PRP injections may promote healing and reduce symptoms in certain cases but it will not repair chronically damaged tissue. Although these measures may help to buy time~and reduce current level of symptoms, they are not a definitive solution to the problem given the underlying abnormality in the shape of the hip joint. Patients who have failed conservative management and continue to experience symptoms are candidates for definitive surgical treatment, which may consist of hip arthroscopy alone or in combination with more invasive bony realignment procedures of the hip socket and/or femur called periacetabular osteotomy (CHUCKY) or derotational femoral osteotomy (DFO). Hip arthroscopy typically includes treating the labrum with either repair or reconstruction of the torn labrum; as well as addressing the underlying abnormalities by restoring the normal shape to the hip joint. If the cartilage is damaged a Microfracture surgical procedure may also be necessary to help stimulate the growth of fibrocartilage. If a patient requires a labral reconstruction or a Microfracture, the initial rehabilitation from the surgery may take longer, but the prison results are typically favorable. I reviewed the technical aspects of periacetabular osteotomy (CHUCKY) including risks, benefits, and expected course of recovery.~Sylvia~understands that CHUCKY is an inpatient procedure carried out through two medium sized incisions on the front and back of the hip joint. The hip socket is cut, realigned, and stabilized with 2 3 internal screws. Risks include infection, bleeding, injury to nearby nerves or vessels, stiffness, persistent pain, instability, failure of bony healing, implant related complications, and venous thromboembolic disease. Rarely, revision surgery may be required to address these problems. Risks, potential complications, side effects and recovery from surgical procedure were discussed in length. We explained how this surgery is an open procedure, and though patients tend to do well in the long-term, it involves significant pain in the first 2-4 weeks post-op and a rather lengthy rehab.~Overall recovery takes approximately 6 12~months depending on the extent of damage and degree of repair. Jose Cunderstands that she~will undergo hip arthroscopy 1 week prior to the CHUCKY to address damage inside the hip joint. Jose Cunderstands that hip arthroscopy and CHUCKY are two separate procedures that are best performed one week apart, with the arthroscopy commencing first to "tighten up" any pathology evident in the hip joint (labral repair, etc.) and the CHUCKY open procedure occurring 7-10 days later to realign the acetabulum. Jose Cwill review the info presented. In order to obtain more detailed information regarding the alignment, orientation, and shape of the bony hip and pelvis I will order a CT scan to be performed. The results of the CT scan, including femoral torsion and acetabular version measured values and 3D images, will aid me in deciding on the best treatment strategy and surgical pre-planning. In order to evaluate the integrity of the surface cartilage within the hip joint , I will order a delayed gadolinium enhanced MRI of cartilage (dGEMRIC). This study will determine whetherJudeis a good candidate for hip preservation surgery. Jose Cis going to think about her~options and get back to us. Jose Cis happy with this plan. I have also supplied~her~with handouts, outlining the expected surgical treatment and rehab involved. I wishJudeall the best, ~~ Antonio Sanchez, PAC History Information - Allergies/Home Medication List Allergies/Adverse Reactions: adhesive tape Allergy (Verified 10/07/16 14:06) Rash morphine Allergy (Verified 10/07/16 14:06) Vomiting Home Medications: Herbals/Supplements -Info Only 1 ea PO DAILY 08/11/18 [Last Taken 08/28/18] Ibuprofen [Motrin (*)] 200 mg PO DAILY PRN 08/11/18 [Last Taken 08/28/18] Levonorgestrel [Mirena] 1 each IY .[id number] 08/11/18 [Last Taken 09/04/18] Ascorbic Acid [Vitamin C 500 mg (*)] 500 mg PO DAILY 09/05/18 [Last Taken Unknown] Diazepam [Valium 2 MG (*)] 2 mg PO Q4HRS PRN 09/05/18 [Last Taken Unknown] Multivitamins [Multivitamin (*)] 1 each PO DAILY 09/05/18 [Last Taken Unknown] Naproxen Sodium [Naproxen Cr] 500 mg PO BID PRN 09/05/18 [Last Taken Unknown] Ondansetron Odt [Zofran Odt 4 mg (*)] 4 mg PO Q4 PRN 09/05/18 [Last Taken Unknown] oxyCODONE/APAP 5/325 [Percocet 5/325 (*)] 1 tab PO Q6HRS PRN 09/05/18 [Last Taken Unknown] I have personally reviewed and updated: medical history - Social History Smoking Status: Never smoked Review of Systems Review of Systems: Physical Exam Physical Exam:
[2018-09-11] MEDS ORDERED: ACETAMINOPHEN 500 MG TAB PO ONE (06:07)
[2018-09-11] MEDS ORDERED: TRANEXAMIC ACID 1,000 MG in NS 100 ML IV ONE (06:07)
[2018-09-11] MEDS ORDERED: LR 1,000 ML IV ONE (06:07)
[2018-09-11] MEDS ORDERED: MIDAZOLAM 2 MG/2 ML VIAL IVP ONE (06:07)
[2018-09-11] MEDS ORDERED: PREGABALIN 150 MG CAP PO ONE (06:07)
[2018-09-11] MEDS ORDERED: SCOPOLAMINE HYDROBROMIDE 1 MG/3 DAYS PATCH TD ONE ×2 (06:07)
[2018-09-11] MEDS ORDERED: ceFAZolin 2 GM/DEXTROSE 100 ML IV ONE (06:07)
[2018-09-11] MEDS ORDERED: DEXMEDETOMIDINE HCL 400 MCG in NS 100 ML IV SCH (06:30)
[2018-09-11] MEDS ORDERED: CITRATE DEXTROSE SOLN 500 ML BAG ONE ×2 (06:55→08:24)
[2018-09-11] MEDS ORDERED: MORPHINE IT ONE (06:56)
[2018-09-11] MEDS ORDERED: morphINE PF 5 MG/10 ML INJ ONE (07:09)
[2018-09-11] MEDS ORDERED: fentaNYL 100 MCG/2 ML INJ ONE (07:10)
[2018-09-11] MEDS ORDERED: PROPOFOL 200 MG/20 ML VIAL ONE (07:11)
--- NOTE | 2018-09-11 07:13 | PDANEPAE ---
ANE Past Medical History - Cardiovascular History Hx Hypertension: No Hx Arrhythmias: No Hx Chest Pain: No Hx Coronary Artery / Peripheral Vascular Disease: No Hx CHF / Valvular Disease: No Hx Palpitations: No - Pulmonary History Hx COPD: No Hx Asthma/Reactive Airway Disease: No Hx Recent Upper Respiratory Infection: No Hx Oxygen in Use at Home: No Hx Sleep Apnea: No Sleep Apnea Screening Result - Last Documented: Negative - Neurologic History Hx Cerebrovascular Accident: No Hx Seizures: No Hx Dementia: No - Endocrine History Hx Diabetes: No - Renal History Hx Renal Disorders: No - Liver History Hx Hepatic Disorders: No - Neurological & Psychiatric Hx Hx Neurological and Psychiatric Disorders: Yes Neurological / Psychiatric History Comment: DEPRESSION - Cancer History Hx Cancer: No - Congenital Disorder History Hx Congenital Disorders: No - GI History Hx Gastrointestinal Disorders: No - Other Health History Other Health History: POST OP HYPOXIA FOLLOWING PROCEDURE ON 09/04/18 AND KEPT OVERNIGHT FOR OBSERVATION - Chronic Pain History Chronic Pain: Yes (TRENT HIPS) - Surgical History Prior Surgeries: X 2. LT KNEE RECONSTRUCTION. HERNIA REPAIR. ABDOMINOPLASTY. R KNEE ANE Review of Systems Review of Systems: - Exercise capacity METS (RN): 4 METS ANE Patient History - Allergies Allergies/Adverse Reactions: adhesive tape Allergy (Verified 10/07/16 14:06) Rash morphine Allergy (Verified 10/07/16 14:06) Vomiting - Home Medications Home Medications: Herbals/Supplements -Info Only 1 ea PO DAILY 08/11/18 [Last Taken 08/28/18] Ibuprofen [Motrin (*)] 200 mg PO DAILY PRN 08/11/18 [Last Taken 08/28/18] Levonorgestrel [Mirena] 1 each IY .[id number] 08/11/18 [Last Taken 09/11/18] Ascorbic Acid [Vitamin C 500 mg (*)] 500 mg PO DAILY 09/05/18 [Last Taken 2 Weeks Ago ~08/28/18] Diazepam [Valium 2 MG (*)] 2 mg PO Q4HRS PRN 09/05/18 [Last Taken 09/10/18] Multivitamins [Multivitamin (*)] 1 each PO DAILY 09/05/18 [Last Taken 08/28/18] Naproxen Sodium [Naproxen Cr] 500 mg PO BID PRN 09/05/18 [Last Taken 09/09/18] Ondansetron Odt [Zofran Odt 4 mg (*)] 4 mg PO Q4 PRN 09/05/18 [Last Taken 1 Week Ago ~09/04/18] oxyCODONE/APAP 5/325 [Percocet 5/325 (*)] 1 tab PO Q6HRS PRN 09/05/18 [Last Taken 09/09/18] - NPO status NPO Since - Liquids (Date): 09/11/18 NPO Since - Liquids (Time): 03:30 NPO Since - Solids (Date): 09/10/18 NPO Since - Solids (Time): 22:00 - Smoking Hx Smoking Status: Never smoked - Family Anes Hx Family Hx Anesthesia Complications: NEG ANE Labs/Vital Signs - Labs Result Diagrams: 09/11/18 06:07 - Vital Signs Blood Pressure: 127/78 Heart Rate: 93 Respiratory Rate: 14 O2 Sat (%): 95 Height: 162.56 cm Weight: 79.379 kg ANE Physical Exam - Airway Neck exam: FROM Mallampati Score: Class 1 Mouth exam: normal dental/mouth exam - Pulmonary Pulmonary: clear to auscultation - Cardiovascular Cardiovascular: regular rate and rhythym - ASA Status ASA Status: II ANE Anesthesia Plan Anesthesia Plan: general endotracheal anesthesia, spinal
[2018-09-11] MEDS ORDERED: TRANEXAMIC ACID 3,000 MG/50 ML BAG IRR ONE (07:31)
[2018-09-11] MEDS ORDERED: TRANEXAMIC ACID 1,000 MG/10 ML VIAL ONE (07:32)
[2018-09-11] MEDS ORDERED: DEXAMETHASONE 4 MG/ML VIAL ONE (07:53)
[2018-09-11] MEDS ORDERED: ROCURONIUM 50 MG/5 ML VIAL ONE ×3 (07:55→09:10)
[2018-09-11] MEDS ORDERED: ceFAZolin 1 GM VIAL ONE ×4 (08:15→13:15)
[2018-09-11] MEDS ORDERED: HYDROmorphONE/DILAUDID 2 MG/ML INJ ONE (08:37)
[2018-09-11] MEDS ORDERED: ePHEDrine SULFATE 25 MG/5 ML SYR ONE (09:22)
[2018-09-11] MEDS ORDERED: PHENYLEPHRINE HCL 100 MCG/ML SYR ONE (11:19)
[2018-09-11] MEDS ORDERED: ONDANSETRON 4 MG/2 ML VIAL ONE (12:14)
[2018-09-11] MEDS ORDERED: METOCLOPRAMIDE 10 MG/2 ML VIAL IVP PRN ×2 (12:32→15:08)
[2018-09-11] MEDS ORDERED: fentaNYL 100 MCG/2 ML INJ IVP PRN (12:32)
[2018-09-11] MEDS ORDERED: ONDANSETRON 4 MG/2 ML VIAL IVP PRN ×4 (12:32→15:08)
[2018-09-11] MEDS ORDERED: LR 500 ML IV PRN (12:32)
[2018-09-11] MEDS ORDERED: NALOXONE HCL 0.4 MG/ML INJ IVP PRN ×4 (12:32→16:13)
[2018-09-11] MEDS ORDERED: DIAZEPAM 5 MG/ML 1 ML SYR IVP PRN (12:32)
[2018-09-11] MEDS ORDERED: MEPERIDINE 25 MG/0.5 ML AMP IVP PRN (12:32)
[2018-09-11] MEDS ORDERED: PROMETHAZINE HCL 25 MG/ML INJ IVP PRN (12:32)
[2018-09-11] MEDS ORDERED: ALBUTEROL 3 ML DEYVIAL IH PRN (12:32)
[2018-09-11] MEDS ORDERED: SUGAMMADEX SODIUM 200 MG/2 ML VIAL IVP ONE (12:42)
[2018-09-11] MEDS ORDERED: DIAZEPAM 2 MG TAB PO PRN (15:05)
[2018-09-11] MEDS ORDERED: MAGNESIUM HYDROXIDE 30 ML UDCUP PO PRN (15:05)
[2018-09-11] MEDS ORDERED: LACTULOSE 20 GM/30 ML UDCUP PO PRN (15:05)
[2018-09-11] MEDS ORDERED: HYDROmorphONE/DILAUDID 6 MG/30 ML PCA IV PRN (15:08)
[2018-09-11] MEDS ORDERED: diphenhydrAMINE 25 MG CAP PO PRN (15:08)
[2018-09-11] MEDS: NAPROXEN SODIUM 220 MG TAB PO SCH ×2 (17:15→22:00)
[2018-09-11] MEDS: ACETAMINOPHEN 325 MG TAB PO PRN (18:49)
[2018-09-11] MEDS: SENNOSIDES/DOCUSATE SODIUM TAB PO SCH (21:57)
--- NOTE | 2018-09-11 22:53 | SUROPNOTE ---
MARVIN Operative Report - Surgery Surgery was performed at [facility] on~09/11/18~ Diagnosis:~ 1. Hip Acetabular Dysplasia~- Right 2. Left retained hardware~ ~ Operation~1: Right~Mily Acetabular Osteotomy (CHUCKY) Surgeon: Ortega Chang MD Paraoptometric:~~Danii Valdovinos MD Anesthetic: General + spinal Procedure: General anesthetic. Antibiotics given. Cell saver in use. Fluoroscopy. Phase 1: Position lateral, diagonal skin incision between ischial tuberosity and greater trochanter as for posterior hip approach. Blunt split of glut max fibers. Identification of fat pad overlying sciatic nerve. Exposure of sciatic nerve under fat pad, gently retracting it away-medially to ischial tuberosity. Exposure of subcotoloid fossa proximal to short rotators. UsingPrecision saw, osteotomy of subcotoloid [id number] mm short of (lateral to) thesciatic notch. Closure of lateral cut. Patient is turned supine. Phase 2: Skin incision just distal to ASIS. Using diathermy the iliac spine was exposed and inguinal ligament + Sartorious were retracted medially, taking the LFCN with them, protecting it. Inner ilium was dissected from iliacus muscle bluntly , with a cob and swab. Dissection continued towards lateral superior ramus pubis. Using fluoroscopy an osteotomy of lateral superior ramus, just medial to tear drop, was performed with~curved fish mouth osteotome. Phase 3: Osteotomy lines of the ilium were marked with diathermy as pre planned according to XR/CT and expected correction of acatabulum. 2 Shanz screws were drilled into central acetabular fragment, corresponding with planned correction angles, in order to mobilize central acetabular fragment after osteotomy is complete. ~Iliac osteotomy was performed with reciprocating saw and the main acetabular fragment was moved to realign weight bearing position. After confirmation of correction using fluoroscopy in AP and false profile planes, the fragment was fixed with 2 -~5.5mm~~full threaded~screws~and 1 -~4mm~~full threaded~screw. Inguinal ligament and Sartorious were attached back to ASIS through drill holes. Incision was closed according to soft tissue layers. Skin was closed with~subdermal Monocryl. Final fluoro shots were obtained to confirm position/correction. After surgery~Sylvia~moved both lower limbs and had no NV motor compromise. Specimen - none Bleeding -~750ml Complication - none Evaluation under anesthesia: IR at 90 degrees hip flexion prior to CHUCKY was~35~degrees and after CHUCKY was 20~ degrees. Bleeding:~750~cc into cell-saver, 400~of blood products were returned to patient. Diagnosis: ~Pain generated by screws, post CHUCKY Indication:~Failure to obtain satisfactory results with long standing conservative measures. ~ Operation~2:~Left~hip screws removal (3~screws) from iliac crest Surgeon: Ortega Chang MD Hospice/Home Health Aide:~~~Danii Valdovinos MD Anaesthetic:~General Procedure: The patient was placed in the supine position. Antibiotics were given. Prepping and draping was performed as per usual fashion. ~Under C arm the 3~screws were identified. A 1 cm incision was performed corresponding to the previous scar. Subcutaneous tissue was incised. The 3~screws were identified. Using a screwdriver the screws were removed without complication. Hemostasia and irrigation were performed. Closure was performed through different layers. Local anesthetic was applied to the incision. Dressings were applied. ~ Sylvia~~tolerated the procedure with no complications. After surgery,~Sylvia~~moved both lower limbs and had no NV compromise. ~ Specimen - none Bleeding -~10ml Complication - none Post op instructions: 1.~toe touch~weight bearing for two weeks and then FWB~crutches for 6 weeks 2. Epidural analgesia for 24-48 hours 3. Continuous SCD 4. Aspirin 81 mg X1 day once Epidural is discontinued 5. Avoid hip flexion past 90 and hip External rotation. 6. PT according to my recommendations at follow up visit Kind regards, Dr. Ortega Chang .
[2018-09-11] MEDS: oxyCODONE IR 5 MG TAB PO SCH (23:39)
[2018-09-12] MEDS: DIAZEPAM 2 MG TAB PO PRN ×4 (01:48→20:52)
[2018-09-12] MEDS: oxyCODONE IR 5 MG TAB PO SCH ×6 (04:50→19:28)
[2018-09-12] MEDS: ACETAMINOPHEN 325 MG TAB PO PRN ×4 (07:48→22:48)
[2018-09-12] MEDS: NAPROXEN SODIUM 220 MG TAB PO SCH ×3 (08:55→22:49)
[2018-09-12] MEDS: SENNOSIDES/DOCUSATE SODIUM TAB PO SCH ×2 (08:57→19:28)
[2018-09-12] MEDS: PANTOPRAZOLE SODIUM 40 MG TAB PO SCH (08:57)
--- NOTE | 2018-09-12 10:22 | PDMN ---
Medical Necessity Medical necessity: ELIO GRG musculoskeletal sgy OP: Fausto [facility] inpt only AUTH# [id number] APPROVED FOR CPT 69627 DONE INPT LOS 1 DAY
[2018-09-12] MEDS: HYDROmorphONE/DILAUDID 6 MG/30 ML PCA IV PRN (12:09)
--- NOTE | 2018-09-12 14:03 | POSTANESTH ---
Post Anesthetic Evaluation Cardiovascular Status: Normal, Stable, Similar to Pre-Op Cond Respiratory Status: Normal, Stable, Similar to Pre-op Cond. Level of Consciousness/Mental Status: Can Participate in Eval, Alert and Oriented Pain Control: Adequate, Prn Tx Ordered Nausea/Vomiting Control: Adequate, Prn Tx Ordered Complications Possibly Related to Anesthesia: None Noted Notes: Intrathecal morphine provided adequate pain control until this morning. Now using MANAGER HOUSE. Back site c/d/i, no e/e/e; denies n/v/pruritis/CRUZ.
--- NOTE | 2018-09-12 16:00 | ASMTCMCOM ---
CM Note CM Note Notes: Pt had planned CHUCKY, resides with and three children. PT/OT evals pending. CM to follow. Date Signed: 09/12/2018 03:59 PM Electronically Signed By:ENE Pimentel
--- NOTE | 2018-09-12 18:13 | PDGENHP ---
History and Physical History and Physical: CC: Medical management after pelvic surgery HISTORY: This patient underwent pelvic surgery for hip dysplasia and other issues today by Dr. Keshia veliz. We are asked to see the patient for medical management Since he the patient does not have any significant medical history other than her hip and pelvic issues. I have seen her postop in her room today. She does have some pelvic pain but otherwise is doing well. She has no nausea, chest pain, shortness of breath, cough, headache, neurologic symptoms, sore throat, bleeding, leg pain, bladder or bowel issues. ROS: A comprehensive 10 system review revealed no other significant findings PAST MEDICAL HISTORY: Hip dysplasia FAMILY MEDICAL HISTORY: No concerning relevant medical issues SOCIAL HISTORY: lives with her Typically very active physically but her hips have been interfering with that MEDICATIONS: The patients list has been reconciled by our clinical pharmacist in the EMR. I have reviewed the list and ordered appropriate medicines. PHYSICAL EXAMINATION: Vital Signs: Stable postop without any fever. She has had a couple of mildly low blood pressures but nothing concerning Examination: General: alert, oriented, good mentation, relaxed Skin: warm, dry, good color, no rash HEENT: normal Neck: no mass or jvd Resps: relaxed Lungs: clear breath sounds Heart: regular, no murmur Abdomen: soft, nondistended, nontender, +BS, no mass Upper Extremities: normal Lower Extremities: no edema, warm No Bleeding or bruising Neurologic: normal speech/language, normal binitrotoluene operator, no focal weakness IV site: looks normal LABORATORY DATA: Hemoglobin down to 10 from 14 preop Chemistry panel unremarkable ASSESSMENT: * Postop after periacetabular osteotomy, removal of screws from left iliac crest * Stable postop * No concerning underlying medical issues PLANS: No particular recommendations at this time Will follow along her clinical course I have reviewed the patient's case in detail with Antonio Delvalle of Orthopedics
[2018-09-12] MEDS: ONDANSETRON DISINTEGRATING 4 MG TAB PO PRN (19:28)
--- NOTE | 2018-09-12 21:02 | SOAPPROG ---
SOAP Progress Note Assessment/Plan: Assessment: 1 day post op Right Periacetabular Osteotomy Left Hip Screw removal Plan: Remove Maldonado when ambulatory Dilaudid NECKTIE MAKER Oxycodone Up with PT/OT SCDs and 81mg ASA for DVT prophylaxis Pelvis X-ray POD#3 DC home likely within 72hrs 09/12/18 20:58 09/12/18 21:04 Subjective: Sylvia seen this afternoon. The NECKTIE MAKER was started at 11 am and has been taking Oxycodone, both of these with good analgesic affect. Some right thigh numbness. Maldonado still in place. She had some dizziness earlier that resolved after taking off the scopolamine patch. She has not been out of bed today. She denies any cp, sob or nausea. Objective: Vital Signs Temp Pulse Resp BP Pulse Ox 36.6 C 98 16 106/53 L 96 09/12/18 19:24 09/12/18 19:24 09/12/18 19:24 09/12/18 19:24 09/12/18 19:24 Laboratory Results 09/12/18 04:35 09/12/18 04:35 09/11/18 09/12/18 09/13/18 05:59 05:59 05:59 Intake Total 1500 350 Output Total 3000 1500 Balance -1500 -1150 Vital signs stable well appearing in NAD Right hip: edema scattered ecchymosis dressings clean dry intact some thigh numbness NVI distally full ROM of foot and ankle ICD10 Worksheet Patient Problems: Problems Problem Status Onset Hip dysplasia, congenital Acute
[2018-09-13] MEDS: oxyCODONE IR 5 MG TAB PO SCH ×7 (00:25→23:46)
[2018-09-13] MEDS: DIAZEPAM 2 MG TAB PO PRN ×3 (04:49→20:01)
[2018-09-13] MEDS: NAPROXEN SODIUM 220 MG TAB PO SCH ×3 (08:44→22:15)
[2018-09-13] MEDS: PANTOPRAZOLE SODIUM 40 MG TAB PO SCH (08:45)
[2018-09-13] MEDS: SENNOSIDES/DOCUSATE SODIUM TAB PO SCH ×2 (08:45→20:00)
[2018-09-13] MEDS: ONDANSETRON DISINTEGRATING 4 MG TAB PO PRN (08:53)
[2018-09-13] MEDS: ACETAMINOPHEN 325 MG TAB PO PRN ×2 (11:17→18:47)
[2018-09-13] MEDS: HYDROmorphONE/DILAUDID 6 MG/30 ML PCA IV PRN (12:43)
--- NOTE | 2018-09-13 14:10 | HOSPPROG ---
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 #Perioperative blood loss anemia: repeat H/H in morning #Diet: regular #DVT ppx: ASA #Disp: inpatient admission for pain control, PT Subjective: pain in right hip 3-4 Objective: Vital Signs Temp Pulse Resp BP Pulse Ox 37.3 C 99 16 103/60 94 09/13/18 12:00 09/13/18 12:00 09/13/18 12:00 09/13/18 12:00 09/13/18 12:00 Laboratory Results 09/12/18 04:35 09/12/18 04:35 09/12/18 09/13/18 09/14/18 05:59 05:59 05:59 Intake Total 0547 854 6003 Output Total 3000 2500 800 Balance -1500 -1650 258 - Physical Exam Constitutional: no apparent distress Eyes: PERRL Ears, Nose, Mouth, Throat: moist mucous membranes Cardiovascular: regular rate and rhythym Respiratory: no respiratory distress Gastrointestinal: normoactive bowel sounds Genitourinary: robbins in urethra Skin: warm Musculoskeletal: other (right and left hip incisions dressed, C/D/I) Neurologic: AAOx3, CN II-XII Intact Psychiatric: interacting appropriately ICD10 Worksheet Patient Problems: Problems Problem Status Onset Hip dysplasia, congenital Acute
--- NOTE | 2018-09-13 14:55 | SOAPPROG ---
SOAP Progress Note Assessment/Plan: Assessment: 38 yo F POD#2 s/p R CHUCKY, L hip HWR. Doing well. 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 Has not yet been out of bed, but PT coming to visit pt while talking with pt. No CP/SOB/N/V. Objective: Vital Signs Temp Pulse Resp BP Pulse Ox 37.1 C 96 16 115/64 92 09/13/18 14:00 09/13/18 14:00 09/13/18 14:00 09/13/18 14:00 09/13/18 14:00 Laboratory Results 09/12/18 04:35 09/12/18 04:35 09/12/18 09/13/18 09/14/18 05:59 05:59 05:59 Intake Total 6886 965 8814 Output Total 3000 2500 800 Balance -1500 -1650 258 PE: NAD, nasal cannula in place b/l hip dressings c/d/i Mild lateral thigh numbness b/l (L side from previous CHUCKY surgery, less significant than R side) Distally 5/5 TA, GSC, EHL SILT throughout foot ICD10 Worksheet Patient Problems: Problems Problem Status Onset Hip dysplasia, congenital Acute
[2018-09-13] MEDS: ASPIRIN EC 81 MG TAB PO SCH (15:46)
[2018-09-13] MEDS: SODIUM CL NASAL 45 ML BTL EACHNARE PRN (15:47)
[2018-09-14] MEDS: DIAZEPAM 2 MG TAB PO PRN ×3 (01:53→17:58)
[2018-09-14] MEDS: oxyCODONE IR 5 MG TAB PO SCH ×6 (04:43→23:37)
[2018-09-14] MEDS: ASPIRIN EC 81 MG TAB PO SCH (08:30)
[2018-09-14] MEDS: SENNOSIDES/DOCUSATE SODIUM TAB PO SCH ×2 (08:30→19:48)
[2018-09-14] MEDS: NAPROXEN SODIUM 220 MG TAB PO SCH ×3 (08:30→21:13)
[2018-09-14] MEDS: PANTOPRAZOLE SODIUM 40 MG TAB PO SCH (08:30)
[2018-09-14] MEDS: POLYETHYLENE GLYCOL 3350 17 GM PKT PO PRN (09:28)
[2018-09-14] MEDS: ACETAMINOPHEN 325 MG TAB PO PRN ×2 (11:28→18:05)
[2018-09-14] MEDS: SODIUM CL NASAL 45 ML BTL EACHNARE PRN ×2 (11:28→18:05)
--- NOTE | 2018-09-14 16:26 | HOSPPROG ---
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 Plan for DC tomorrow Subjective: pain worse with activity Objective: Vital Signs Temp Pulse Resp BP Pulse Ox 36.9 C 92 16 113/65 97 09/14/18 11:26 09/14/18 11:26 09/14/18 11:26 09/14/18 11:26 09/14/18 11:26 Laboratory Results 09/14/18 05:00 09/12/18 04:35 09/13/18 09/14/18 09/15/18 05:59 05:59 05:59 Intake Total 850 4853.8 500 Output Total 2500 3875 1050 Balance -1650 978.8 -550 - Time Spent With Patient Time Spent with Patient: greater than 25 minutes Time Spent with Patient: Greater than 25 minutes spent on this patients care, greater than 50% of time spent counseling, educating, and coordinating care regarding the above mentioned plan. - Physical Exam Constitutional: no apparent distress Eyes: PERRL Ears, Nose, Mouth, Throat: moist mucous membranes Cardiovascular: regular rate and rhythym Respiratory: no respiratory distress Gastrointestinal: normoactive bowel sounds Genitourinary: no bladder fullness Musculoskeletal: other (right and left hip incisions dressed, CDI) Neurologic: AAOx3, CN II-XII Intact Psychiatric: interacting appropriately ICD10 Worksheet Patient Problems: Problems Problem Status Onset Hip dysplasia, congenital Acute
[2018-09-14] MEDS: HYDROmorphONE/DILAUDID 6 MG/30 ML PCA IV PRN (19:27)
[2018-09-14] MEDS: BISACODYL 10 MG SUPP PR PRN (19:48)
--- NOTE | 2018-09-14 19:53 | SOAPPROG ---
SOAP Progress Note Assessment/Plan: Assessment: Plan: 09/14/18 19:51 POD 3, doing well, progressing, passed gas/no stool yet. Maldonado out. Xr looks good, can go when safe and ready. Dr Chang Objective: Vital Signs Temp Pulse Resp BP Pulse Ox 36.8 C 81 16 117/61 100 09/14/18 19:42 09/14/18 19:42 09/14/18 19:42 09/14/18 19:42 09/14/18 19:42 Laboratory Results 09/14/18 05:00 09/12/18 04:35 09/13/18 09/14/18 09/15/18 05:59 05:59 05:59 Intake Total 850 4853.8 1038.5 Output Total 2500 3875 1050 Balance -1650 978.8 -11.5 ICD10 Worksheet Patient Problems: Problems Problem Status Onset Hip dysplasia, congenital Acute
[2018-09-15] MEDS: oxyCODONE IR 5 MG TAB PO SCH ×5 (04:06→20:13)
[2018-09-15] MEDS: PREPARATION H 51 GM CRTUBE PR PRN ×2 (07:15→10:00)
[2018-09-15] MEDS: ASPIRIN EC 81 MG TAB PO SCH (08:18)
[2018-09-15] MEDS: PANTOPRAZOLE SODIUM 40 MG TAB PO SCH (08:18)
[2018-09-15] MEDS: DIAZEPAM 2 MG TAB PO PRN ×3 (08:19→22:20)
[2018-09-15] MEDS: SENNOSIDES/DOCUSATE SODIUM TAB PO SCH ×2 (08:19→20:16)
[2018-09-15] MEDS: NAPROXEN SODIUM 220 MG TAB PO SCH ×3 (08:19→22:20)
[2018-09-15] MEDS: POLYETHYLENE GLYCOL 3350 17 GM PKT PO PRN (08:20)
[2018-09-15] MEDS: BISACODYL 10 MG SUPP PR PRN (12:13)
--- NOTE | 2018-09-15 12:27 | ASMTCMCOM ---
CM Note CM Note Notes: PT recommends HHC. Spoke with pt and about this recommendation, pt declines HHC and has an outpatient PT she has worked with for two years with an outpatient PT appointment scheduled soon. Anticipate pt will d/c when medically stable, no CM d/c needs identified. CM available for changes/needs. Date Signed: 09/15/2018 12:26 PM Electronically Signed By:ENE Pimentel
[2018-09-15] MEDS: ACETAMINOPHEN 325 MG TAB PO PRN (13:08)
--- NOTE | 2018-09-15 16:22 | SOAPPROG ---
SOAP Progress Note Assessment/Plan: Assessment: 38 yo F POD#4 s/p R CHUCKY, L hip HWR. Doing well. Plan: Continue PO pain control Up with PT/OT -- plan to work on stairs prior to d/c SCDs and 81mg ASA for DVT prophylaxis Pelvis X-ray cleared by Dr. 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 Feels well. Has not yet done stairs with PT. Objective: Vital Signs Temp Pulse Resp BP Pulse Ox 37.1 C 103 H 18 112/56 L 92 09/15/18 12:00 09/15/18 12:00 09/15/18 12:00 09/15/18 12:00 09/15/18 12:00 Laboratory Results 09/14/18 05:00 09/12/18 04:35 09/14/18 09/15/18 09/16/18 05:59 05:59 05:59 Intake Total 4853.8 1388.5 Output Total 3875 1050 Balance 978.8 338.5 Gen: NAD, comfortable b/l hip dressings c/d/i Distally 5/5 TA, GSC, EHL SILT throughout distally ICD10 Worksheet Patient Problems: Problems Problem Status Onset Hip dysplasia, congenital Acute
[2018-09-16] MEDS: oxyCODONE IR 5 MG TAB PO SCH ×3 (00:06→08:52)
[2018-09-16] MEDS: POLYETHYLENE GLYCOL 3350 17 GM PKT PO PRN (06:00)
[2018-09-16 08:36] VITALS: BP 125/70
[2018-09-16] MEDS: PANTOPRAZOLE SODIUM 40 MG TAB PO SCH (08:51)
[2018-09-16] MEDS: ASPIRIN EC 81 MG TAB PO SCH (08:51)
[2018-09-16] MEDS: NAPROXEN SODIUM 220 MG TAB PO SCH (08:51)
[2018-09-16] MEDS: SENNOSIDES/DOCUSATE SODIUM TAB PO SCH (08:53)
== END 2018-09-16 10:32 | disposition home or self-care (01) | DRG 496 ==
LOC: F3E 05:50 → F3N 15:22
PROVIDERS: ADMIT Orthopaedic Surgery Sports Medicine; ATTEND Orthopaedic Surgery Sports Medicine
PROC: 0QS404Z Reposition Right Acetabulum with Internal Fixation Device, Open Approach (ICD-10-PCS; principal; 2018-09-11 07:15)
PROC: 3E0S3BZ Introduction of Anesthetic Agent into Epidural Space, Percutaneous Approach (ICD-10-PCS; principal; 2018-09-11 07:15)
PROC: 0QP304Z Removal of Internal Fixation Device from Left Pelvic Bone, Open Approach (ICD-10-PCS; principal; 2018-09-11 07:15)
PROC: 30233H0 Transfusion of Autologous Whole Blood into Peripheral Vein, Percutaneous Approach (ICD-10-PCS; principal; 2018-09-11 07:15)
DX: Q65.89 Other specified congenital deformities of hip (principal); Z47.2 Encounter for removal of internal fixation device; D62 Acute posthemorrhagic anemia; F32.9 Major depressive disorder, single episode, unspecified
CPT/HCPCS: 97116-GP; 97161-GP; 97165-GO; 97530-GP; 97535-GO; C1713; J0690; J1100; J1170; J2250; J2274; J2370; J2405; J2704; J3010